=== PATIENT | male | born 1975 | race Caucasian/White ===

== ENCOUNTER 2018-02-16 17:53 | Emergency (ER) | payer OTHER ==
[2018-02-16 18:07] VITALS: TEMP 98.2
[2018-02-16] MEDS ORDERED: Sodium Chloride 0.9% 1,000 ML IV ONE (18:57)
[2018-02-16 19:29] LABS: BASO # 0.1 K/uL (0.0-0.2); BASO % 0.7 % (0.0-2.0); EOS # 0.1 K/uL (0.0-0.7); EOS % 0.9 % (0.0-4.0); HEMOGLOBIN 15.5 g/dL (12.0-18.0); LYMPH # 2.9 K/uL (1.0-4.3); LYMPH % 26.7 % (20.0-40.0); MEAN CELL VOLUME 73.9 fL (80.0-94.0); MEAN CORPUSCULAR HEMOGLOBIN 23.9 pg (27.0-31.0); MEAN CORPUSCULAR HGB CONC 32.4 g/dL (33.0-37.0); MEAN PLATELET VOLUME 8.8 fL (7.2-11.7); MONO # 0.7 K/uL (0.0-0.8); MONO % 6.3 % (0.0-10.0); NEUT % 65.4 % (50.0-75.0); NRBC % 0.1 % (0.0-2.0); RBC 6.49 Mil/uL (4.40-5.90); RED CELL DISTRIBUTION WIDTH 14.7 % (11.5-14.5); WHITE BLOOD COUNT 10.7 K/uL (4.8-10.8)
[2018-02-16 19:37] LABS: URINE BILIRUBIN NEGATIVE (NEGATIVE); URINE BLOOD 2+ (NEGATIVE); URINE CLARITY Clear (Clear); URINE COLOR Straw (YELLOW); URINE GLUCOSE (UA) NORMAL (Normal); URINE LEUKOCYTE ESTERASE NEG Leu/uL (Negative); URINE PROTEIN NEGATIVE (NEGATIVE); URINE UROBILINOGEN NORMAL mg/dL (0.2-1.0)
[2018-02-16 19:40] LABS: ALB/GLOB RATIO 1.2 (1.0-2.1); ALBUMIN 4.4 g/dL (3.5-5.0); ALT/SGPT 37 U/L (21-72); AST/SGOT 21 U/L (17-59); BLOOD UREA NITROGEN 9 mg/dL (9-20); CALCIUM 9.6 mg/dl (8.6-10.4); GFR AFRICAN-AMERICAN > 60; GFR NON-AFRICAN AMERICAN > 60; LIPASE 344 U/L (23-300)
--- NOTE | 2018-02-16 19:58 | C.PDOC ---
Time Seen by Provider: 02/16/18 18:39 Chief Complaint (Nursing): Abdominal Pain History Per: Patient Onset/Duration Of Symptoms: Days (about 2 weeks), Waxing/Waning Current Symptoms Are (Timing): Still Present Severity: Moderate Location Of Pain/Discomfort: Diffuse Associated Symptoms: Constipation Alleviating Factors: None Additional History Per: Prior Records Past Medical History Reviewed: Historical Data, Nursing Documentation, Vital Signs Vital Signs: Last Vital Signs Temp 98.2 F 02/16/18 18:04 Pulse 109 H 02/16/18 18:04 Resp 19 02/16/18 18:04 BP 134/91 H 02/16/18 18:04 Pulse Ox 100 02/16/18 18:04 - Medical History PMH: HTN Surgical History: No Surg Hx Family History: States: Unknown Family Hx - Social History Hx Tobacco Use: No Hx Alcohol Use: No Hx Substance Use: No - Immunization History Hx Tetanus Toxoid Vaccination: No Hx Influenza Vaccination: Yes Hx Pneumococcal Vaccination: No Review Of Systems Except As Marked, All Systems Reviewed And Found Negative. Constitutional: Negative for: Weakness Cardiovascular: Negative for: Chest Pain Respiratory: Positive for: Cough. Negative for: Shortness of Breath, Hemoptysis Gastrointestinal: Positive for: Abdominal Pain, Constipation. Negative for: Vomiting, Diarrhea Genitourinary: Negative for: Hematuria, Scrotal Pain Musculoskeletal: Negative for: Neck Pain Skin: Negative for: Rash Neurological: Negative for: Weakness, Numbness Physical Exam - Physical Exam Appears: Non-toxic, No Acute Distress Skin: Normal Color, Warm, Dry, No Rash Head: Atraumatic, Normacephalic Eye(s): bilateral: Normal Inspection, PERRL, EOMI Neck: Normal ROM, Supple Cardiovascular: Rhythm Regular Respiratory: Normal Breath Sounds, No Accessory Muscle Use Gastrointestinal/Abdominal: Soft, Tenderness (mild nonspecific), No Distention, No Guarding, No Rebound Back: No CVA Tenderness Extremity: Normal ROM Neurological/Psych: Oriented x3, Normal Motor, Normal Sensation ED Course And Treatment - Laboratory Results Result Diagrams: 02/16/18 19:26 02/16/18 19:26 Lab Interpretation: No Acute Changes O2 Sat by Pulse Oximetry: 100 Pulse Ox Interpretation: Normal - Radiology CXR: Interpreted by Me, Viewed By Me CXR Interpretation: Yes: No Acute Disease - Other Rad Obsructive series X-Ray: Interpreted by Me, Viewed By Me Interpretation: Increased stool in colon. Reassessment Condition: Improved Disposition Counseled Patient/Family Regarding: Studies Performed, Diagnosis, Need For Followup, Rx Given - Disposition Referrals: Alexis Coronado MD [Medical Doctor] - Disposition: HOME/ ROUTINE Disposition Time: 19:58 Condition: STABLE Additional Instructions: Follow up with your doctor for further evaluation and treatment. Return to the ER if you develop vomiting, worsening of symptoms or if you have any other concerns. Prescriptions: Polyethylene Glycol 3350 [Miralax] 17 gm PO DAILY #7 packet Instructions: Constipation, Adult (DC) - Clinical Impression Clinical Impression: Abdominal pain, Constipation
[2018-02-16 20:11] VITALS: BP 130/79; PULSE 82; RESP 18; O2SAT 99
--- NOTE | 2018-02-17 09:43 | RAD ---
Date of service: 02/16/2018 PROCEDURE: Radiographs of the chest and abdomen (obstructive series) HISTORY: Abdominal pain, cough COMPARISON: No prior. TECHNIQUE: AP radiograph of the chest, with upright and supine radiographs of the abdomen. FINDINGS: CHEST: Lungs: Clear. Cardiovascular: Normal size heart. No pulmonary vascular congestion. Pleura: No pleural fluid. No pneumothorax. Other findings: None. ABDOMEN AND PELVIS: Bowel: Unremarkable bowel gas pattern. No evidence of mechanical obstruction. Free air: None. Bones: Unremarkable. Other findings: None. IMPRESSION: Unremarkable radiographs of chest and abdomen. No evidence of mechanical bowel obstruction.
== END 2018-02-16 20:11 | disposition home or self-care (01) ==
LOC: C.ER 17:53
DX: K59.00 Constipation, unspecified (principal); R10.9 Unspecified abdominal pain
CPT/HCPCS: 74022; 80053; 81001; 83690; 85025; 96360; 99285; J7030

== ENCOUNTER 2018-03-07 06:40 | Day surgery (SDC) | payer OTHER ==
[2018-03-06 11:58] VITALS: BMI 28.5
[2018-03-07] MEDS ORDERED: Propofol 10 mg/ml Inj (20 ML) ONE ×2 (08:35→08:56)
--- NOTE | 2018-03-07 08:35 | CP.SDSHP ---
Same Day Surgery H & P - History Proposed Procedure: colonoscopy Pre-Op Diagnosis: rectal bleeding. change in bowels - Previous Medical/Surgical History Cardiac: Hypertension - Allergies Allergies: Allergies No Known Allergies Allergy (Unverified 03/07/18 07:13) - Physical Exam Vital Signs: Vital Signs 03/07/18 03/07/18 07:05 07:25 Temperature 98.0 F Pulse Rate 80 80 Respiratory 20 Rate Blood Pressure 126/81 O2 Sat by Pulse 100 Oximetry Mental Status: Alert & Oriented x3 Neuro: WNL Heart: WNL Lungs: WNL GI: WNL - Impression Impression: rectal bleeding. change in bowels/constipation Pt. Evaluated Today:Candidate for Anesthesia & Procedure: Yes - Date & Time Date: 03/07/18 Time: 08:35 Short Stay Discharge - Short Stay Discharge Admitting Diagnosis/Reason for Visit: CONSTIPATION / RT LOWER QUADRANT PAIN Disposition: HOME/ ROUTINE
[2018-03-07 10:06] VITALS: TEMP 98
[2018-03-07 10:07] VITALS: O2SAT 100
[2018-03-07 10:09] VITALS: BP 106/68; PULSE 75; RESP 12
--- NOTE | 2018-03-09 21:34 | CARD ---
APPROVED REPORT Date of service: 03/07/2018 EKG Measurement Heart [id number] <Conclusion> Normal sinus rhythm Normal ECG
== END 2018-03-07 10:07 | disposition home or self-care (01) ==
LOC: C.ENDO 06:40
PROVIDERS: ATTEND Internal Medicine Gastroenterology
DX: D12.4 Benign neoplasm of descending colon (principal); K64.8 Other hemorrhoids; K59.00 Constipation, unspecified
CPT/HCPCS: 45380; 88305; 93005; J2001; J2704

== ENCOUNTER 2018-10-21 03:25 | Emergency (ER) | payer OTHER ==
[2018-10-21 03:25] VITALS: BMI 28.5
--- NOTE | 2018-10-21 03:54 | C.PDOC ---
History Of Present Illness 43 year old male presents to the ED c/o abdominal pain that started yesterday. Patient reports he has not taken any medications at home for his symptoms. Patient denies fever, chills, nausea, vomit, diarrhea, dysuria, back pain. Time Seen by Provider: 10/21/18 03:53 Chief Complaint (Nursing): Abdominal Pain History Per: Patient History/Exam Limitations: no limitations Onset/Duration Of Symptoms: Days (1) Current Symptoms Are (Timing): Still Present Pain Scale Rating Of: 4 Location Of Pain/Discomfort: Diffuse Quality Of Discomfort: "Pain" Associated Symptoms: denies: Nausea, Vomiting, Diarrhea, Urinary Symptoms Recent travel outside of the [place]: No Additional History Per: Patient Past Medical History Reviewed: Historical Data, Nursing Documentation, Vital Signs Vital Signs: Last Vital Signs Temp 98 F 10/21/18 03:31 Pulse 95 H 10/21/18 03:31 Resp 20 10/21/18 03:31 BP 146/93 H 10/21/18 03:31 Pulse Ox 97 10/21/18 03:31 - Medical History PMH: HTN Denies: Chronic Kidney Disease Surgical History: No Surg Hx Family History: States: Unknown Family Hx - Social History Hx Tobacco Use: No Hx Alcohol Use: No Hx Substance Use: No - Immunization History Hx Tetanus Toxoid Vaccination: No Hx Influenza Vaccination: Yes (2017) Hx Pneumococcal Vaccination: No Review Of Systems Constitutional: Negative for: Fever, Chills Cardiovascular: Negative for: Chest Pain Respiratory: Negative for: Shortness of Breath Gastrointestinal: Positive for: Abdominal Pain. Negative for: Nausea, Vomiting, Diarrhea, Constipation Skin: Negative for: Rash Neurological: Negative for: Weakness, Numbness Physical Exam - Physical Exam Appears: Non-toxic, No Acute Distress Skin: Warm, Dry Head: Normacephalic Eye(s): bilateral: Normal Inspection Oral Mucosa: Moist Neck: Supple Chest: Symmetrical Cardiovascular: Rhythm Regular Respiratory: No Rales, No Rhonchi, No Wheezing Gastrointestinal/Abdominal: Soft, No Tenderness, No Guarding, No Rebound Extremity: Bilateral: Atraumatic, Normal Color And Temperature, Normal ROM Neurological/Psych: Oriented x3, Normal Speech, Normal Cognition Gait: Steady ED Course And Treatment - Laboratory Results Result Diagrams: 10/21/18 04:23 10/21/18 04:23 O2 Sat by Pulse Oximetry: 97 (ON RA) Pulse Ox Interpretation: Normal Progress Note: Plan: - Labs. - protonix 40 mg iVP. - iv fluids. - toradol 30 mg IVP. - UA Reevaluation Time: 06:42 Reassessment Condition: Improved Medical Decision Making Medical Decision Making: Upon provider reevaluation patient is feeling better, is medically stable, and requires no further treatment in the ED at this time. Patient will be discharged home with Rx for protonix, naproxen . Counseling was provided and all questions were answered regarding diagnosis and need for follow up with dr coronado. There is agreement to discharge plan. Return if symptoms persist or worsen. Disposition Counseled Patient/Family Regarding: Studies Performed, Diagnosis, Need For Followup, Rx Given - Disposition Referrals: Alexis Coronado MD [Medical Doctor] - Disposition: HOME/ ROUTINE Disposition Time: 06:42 Condition: FAIR Additional Instructions: Please return if symptom recur Prescriptions: Naproxen [Naprosyn] 1 tab PO BID PRN #25 tab PRN Reason: Pain Pantoprazole Sodium [Protonix] 40 mg PO DAILY #14 ect Instructions: Pancreatitis (DC) Forms: [facility] ([place]ian) - Clinical Impression Clinical Impression: Abdominal pain, Pancreatitis - Scribe Statement The provider has reviewed the documentation as recorded by the Scribe Abelardo Sutton All medical record entries made by the Scribe were at my direction and personally dictated by me. I have reviewed the chart and agree that the record accurately reflects my personal performance of the history, physical exam, medical decision making, and the department course for this patient. I have also personally directed, reviewed, and agree with the discharge instructions and disposition.
[2018-10-21] MEDS ORDERED: Sodium Chloride 0.9% 1,000 ML IV ONE (04:10)
[2018-10-21 04:28] LABS: MEAN CORPUSCULAR HGB CONC 31.6 g/dL (33.0-37.0)
[2018-10-21 04:31] LABS: BASO # 0.1 K/uL (0.0-0.2); BASO % 1.1 % (0.0-2.0); EOS # 0.2 K/uL (0.0-0.7); EOS % 3.2 % (0.0-4.0); HEMOGLOBIN 15.2 g/dL (12.0-18.0); LYMPH # 2.4 K/uL (1.0-4.3); LYMPH % 31.4 % (20.0-40.0); MEAN CELL VOLUME 75.9 fL (80.0-94.0); MEAN PLATELET VOLUME 9.3 fL (7.2-11.7); MONO # 0.7 K/uL (0.0-0.8); MONO % 8.5 % (0.0-10.0); NEUT # 4.3 K/uL (1.8-7.0); NEUT % 55.8 % (50.0-75.0); NRBC % 0.1 % (0.0-2.0); RBC 6.34 Mil/uL (4.40-5.90); RED CELL DISTRIBUTION WIDTH 14.6 % (11.5-14.5); WHITE BLOOD COUNT 7.7 K/uL (4.8-10.8)
[2018-10-21 04:38] LABS: ALB/GLOB RATIO 1.2 (1.0-2.1); ALBUMIN 4.1 g/dL (3.5-5.0); ALT/SGPT 29 U/L (21-72); AST/SGOT 27 U/L (17-59); BLOOD UREA NITROGEN 15 mg/dL (9-20); CALCIUM 9.6 mg/dl (8.6-10.4); GFR NON-AFRICAN AMERICAN > 60; LIPASE 533 U/L (23-300)
[2018-10-21 04:40] LABS: SQUAMOUS EPITHIAL < 1 /hpf (0-5); URINE BILIRUBIN NEGATIVE (NEGATIVE); URINE BLOOD 2+ (NEGATIVE); URINE CLARITY Clear (Clear); URINE COLOR Yellow (YELLOW); URINE GLUCOSE (UA) NORMAL (Normal); URINE LEUKOCYTE ESTERASE NEG Leu/uL (Negative); URINE PROTEIN NEGATIVE (NEGATIVE); URINE UROBILINOGEN NORMAL mg/dL (0.2-1.0)
[2018-10-21] MEDS ORDERED: Iodixanol 320 MG/ML 100 ML BOTTLE IV ONE (05:37)
[2018-10-21 06:03] VITALS: BP 151/78; PULSE 89; RESP 18; TEMP 98.2
[2018-10-21 06:45] VITALS: O2SAT 97
--- NOTE | 2018-10-21 09:27 | CT ---
CT abdomen and pelvis HISTORY: Abdominal pain. Elevated lipase. COMPARISON: None available. TECHNIQUE: Multiple contiguous axial images were performed through the abdomen and pelvis with the use of intravenous contrast. Subsequently, sagittal and coronal reformatted images were obtained. This CT exam was performed using one or more of the following dose reduction techniques: Automated exposure control, adjustment of the mA and/or kV according to patient size, and/or use of iterative reconstruction technique. FINDINGS: Scattered atelectasis at the lung bases. No pleural or pericardial effusion. Prominent liver with fatty infiltration. 1.9 centimeter low-attenuation lesion within the right hepatic lobe demonstrating a Hounsfield unit attenuation of 50, indeterminate. Further evaluation with contrast-enhanced multiphasic CT or MR is recommended if clinically indicated. Spleen is preserved. Adrenal glands are preserved. Minimal peripancreatic fat thickening and stranding which may represent a minimal acute pancreatitis. Clinical correlation. Large rounded encapsulated low-attenuation lesion seen at the junction of the body and tail of the pancreas measuring 4.1 x 3.9 centimeters demonstrating a Hounsfield unit attenuation of 1. This is of uncertain clinical etiology and further evaluation with contrast-enhanced pancreatic protocol CT or MR is recommended if clinically indicated. Small hiatal hernia. Few mildly thickened loops of small bowel in the upper mid abdomen. Right kidney 6 millimeter hypodensity in the upper pole of the right kidney, too small to adequately characterize. Left Kidney: No calculi or hydronephrosis. Mildly thick-walled urinary bladder. Fecal retention in the colon. Underdistention of the distal descending colon. Appendix is within normal limits. Few shotty para-aortic and inguinal lymph nodes. Mild atherosclerotic calcification and plaque in the aorta. Degenerative changes in the spine. Impression: 1. Minimal peripancreatic fat thickening and stranding which may represent a minimal acute pancreatitis. Clinical correlation. 2. Large rounded encapsulated low-attenuation lesion seen at the junction of the body and tail of the pancreas measuring 4.1 x 3.9 centimeters demonstrating a Hounsfield unit attenuation of 1. This cystic lesion of the pancreas is of uncertain clinical etiology and further evaluation with contrast-enhanced pancreatic protocol CT or MR is recommended for further evaluation if clinically indicated. 3. Small hiatal hernia. 4. Few mildly thickened loops of small bowel in the upper mid abdomen. 5. Mildly thick-walled urinary bladder. 6. Prominent liver with fatty infiltration. 1.9 centimeter low-attenuation lesion within the right hepatic lobe demonstrating a Hounsfield unit attenuation of 50, indeterminate. Further evaluation with contrast-enhanced multiphasic CT or MR is recommended if clinically indicated. Additional findings as above. A preliminary report was generated at 6:35 a.m. on 10/21/[address] Zeynep Harper from [facility]. This case was placed in the PA review folder.
== END 2018-10-21 06:54 | disposition home or self-care (01) ==
LOC: C.ER 03:25
DX: K85.90 Acute pancreatitis without necrosis or infection, unspecified (principal); R10.9 Unspecified abdominal pain; I10 Essential (primary) hypertension
CPT/HCPCS: 74177; 80053; 81001; 83690; 85025; 96361; 96374; 96375; 99284; C9113; J1885; J7030; Q9967

== ENCOUNTER 2018-10-21 15:34 | Observation (INO) | payer OTHER ==
[2018-10-21 15:34] VITALS: BMI 28.5
--- NOTE | 2018-10-21 15:59 | C.PDOC ---
History Of Present Illness 43 y/o male pt presents to the ER with family c/o abdominal pain. Pt was here overnight, received CT scan and lab; diagnosed with pancreatitis but was discharged home. As per family, pt was not feeling well and his back pain and vomiting came back which prompted them to bring him to the ER again. Pt has no other complaints or associated sx at this time. Time Seen by Provider: 10/21/18 15:35 Chief Complaint (Nursing): Abdominal Pain History Per: Patient History/Exam Limitations: no limitations Onset/Duration Of Symptoms: Days (x1) Current Symptoms Are (Timing): Still Present Past Medical History Reviewed: Historical Data, Nursing Documentation, Vital Signs Vital Signs: Last Vital Signs Temp 98.2 F 10/21/18 15:41 Pulse 114 H 10/21/18 15:41 Resp 20 10/21/18 15:41 BP 187/110 H 10/21/18 15:41 Pulse Ox 100 10/21/18 15:41 - Medical History PMH: HTN Surgical History: No Surg Hx Family History: States: Unknown Family Hx - Social History Hx Tobacco Use: No Hx Alcohol Use: No Hx Substance Use: No - Immunization History Hx Tetanus Toxoid Vaccination: No Hx Influenza Vaccination: Yes (2017) Hx Pneumococcal Vaccination: No Review Of Systems Except As Marked, All Systems Reviewed And Found Negative. Constitutional: Positive for: Other (dx with pancreatitis ) Gastrointestinal: Positive for: Vomiting Musculoskeletal: Positive for: Back Pain Physical Exam - Physical Exam Appears: Non-toxic, In Acute Distress, Other (in pain ) Skin: Warm, Dry Head: Normacephalic Eye(s): bilateral: Normal Inspection Oral Mucosa: Moist Throat: Normal, No Erythema, No Exudate Neck: Normal ROM, Supple Chest: Symmetrical Cardiovascular: Other (tachycardiac) Respiratory: Normal Breath Sounds Gastrointestinal/Abdominal: Soft, Tenderness (upper abdomen; periumbilical area; consistent with pain ), Guarding, No Rebound Neurological/Psych: Oriented x3, Normal Speech, Normal Cognition ED Course And Treatment - Laboratory Results Result Diagrams: 10/21/18 16:12 10/21/18 16:12 O2 Sat by Pulse Oximetry: 100 (RA) Pulse Ox Interpretation: Normal Progress Note: Case was d/w who accepted patient to his service for further evaluation and treatment. Medical Decision Making Medical Decision Making: impression: pancreatitis plans: -- chem labs -- blood work -- IV fluids -- morphine Disposition - Disposition Disposition: HOSPITALIZED Disposition Time: 17:21 Condition: FAIR - Clinical Impression Clinical Impression: Abdominal pain, Pancreatitis, Pancreatic lesion - PA / [employer]REIGHT LOADER / Resident Statement MD/DO has reviewed & agrees with the documentation as recorded. - Scribe Statement The provider has reviewed the documentation as recorded by the Scribe Nette Villalta All medical record entries made by the Scribe were at my direction and personally dictated by me. I have reviewed the chart and agree that the record accurately reflects my personal performance of the history, physical exam, medical decision making, and the department course for this patient. I have also personally directed, reviewed, and agree with the discharge instructions and disposition. Decision To Admit - Pt Status Changed To: Hospital Disposition Of: Observation - . Bed Request Type: Regular Admitting Physician: Jess Allen Patient Diagnosis: Abdominal pain, Pancreatitis, Pancreatic lesion
[2018-10-21] MEDS ORDERED: Sodium Chloride 0.9% 1,000 ML IV STA (16:01)
[2018-10-21] MEDS ORDERED: Morphine 4 MG/ML VIAL ONE (16:11)
[2018-10-21] MEDS ORDERED: Sodium Chloride 0.9% 1,000 ML ONE (16:12)
[2018-10-21 16:20] LABS: BASO # 0.1 K/uL (0.0-0.2); BASO % 0.6 % (0.0-2.0); EOS % 0.1 % (0.0-4.0); LYMPH # 1.4 K/uL (1.0-4.3); LYMPH % 12.6 % (20.0-40.0); MEAN CORPUSCULAR HEMOGLOBIN 23.8 pg (27.0-31.0); MEAN CORPUSCULAR HGB CONC 31.3 g/dL (33.0-37.0); MEAN PLATELET VOLUME 9.7 fL (7.2-11.7); MONO # 0.6 K/uL (0.0-0.8); NEUT # 9.4 K/uL (1.8-7.0); NEUT % 81.7 % (50.0-75.0); RBC 6.31 Mil/uL (4.40-5.90); RED CELL DISTRIBUTION WIDTH 14.9 % (11.5-14.5); WHITE BLOOD COUNT 11.5 K/uL (4.8-10.8)
[2018-10-21 16:31] LABS: ALB/GLOB RATIO 1.3 (1.0-2.1); ALBUMIN 4.4 g/dL (3.5-5.0); ALT/SGPT 30 U/L (21-72); AST/SGOT 25 U/L (17-59); BLOOD UREA NITROGEN 14 mg/dL (9-20); CALCIUM 9.8 mg/dl (8.6-10.4); GFR NON-AFRICAN AMERICAN > 60; LIPASE 343 U/L (23-300)
[2018-10-21 17:43] LABS: URINE BILIRUBIN NEGATIVE (NEGATIVE); URINE BLOOD 1+ (NEGATIVE); URINE CLARITY Clear (Clear); URINE COLOR Yellow (YELLOW); URINE GLUCOSE (UA) NORMAL (Normal); URINE LEUKOCYTE ESTERASE NEG Leu/uL (Negative); URINE PROTEIN NEGATIVE (NEGATIVE); URINE UROBILINOGEN NORMAL mg/dL (0.2-1.0)
--- NOTE | 2018-10-21 18:41 | CP.PCM.HP ---
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 - RENAL Hx Chronic Kidney Disease: No - ENDOCRINE/METABOLIC Hx Endocrine Disorders: No - HEMATOLOGICAL/ONCOLOGICAL Hx Blood Disorders: No Hx Blood Transfusions: No - INTEGUMENTARY Hx Dermatological Problems: No - MUSCULOSKELETAL/RHEUMATOLOGICAL Hx Musculoskeletal Disorders: No - GASTROINTESTINAL Hx Gastrointestinal Disorders: Yes (ABDOMINAL PAIN) - GENITOURINARY/GYNECOLOGICAL Hx Genitourinary Disorders: No - PSYCHIATRIC Hx Substance Use: No - SURGICAL HISTORY Hx Surgeries: No - ANESTHESIA Hx Anesthesia: No Hx Anesthesia Reactions: No Hx Malignant Hyperthermia: No Meds Allergies/Adverse Reactions: Allergies Allergy/AdvReac Type Severity Reaction Status Date / Time No Known Allergies Allergy Verified 10/21/18 03:40 Physical Exam - Constitutional Appears: Well - Head Exam Head Exam: ATRAUMATIC, NORMAL INSPECTION, NORMOCEPHALIC - Eye Exam Eye Exam: EOMI, Normal appearance, PERRL Pupil Exam: NORMAL ACCOMODATION, PERRL - ENT Exam ENT Exam: Mucous Membranes Moist, Normal Exam - Neck Exam Neck exam: Positive for: Normal Inspection - Respiratory Exam Respiratory Exam: Decreased Breath Sounds - Cardiovascular Exam Cardiovascular Exam: REGULAR RHYTHM, +S1, +S2 - GI/Abdominal Exam GI & Abdominal Exam: Diminished Bowel Sounds, Soft - Rectal Exam Rectal Exam: Deferred Results - Vital Signs Recent Vital Signs: Last Vital Signs Temp 98.2 F 10/21/18 15:41 Pulse 114 H 10/21/18 15:41 Resp 20 10/21/18 15:41 BP 187/110 H 10/21/18 15:41 Pulse Ox 100 10/21/18 17:51 - Labs Result Diagrams: 10/21/18 16:12 10/21/18 16:12 Labs: Laboratory Results - last 24 hr 10/21/18 10/21/18 10/21/18 16:12 16:12 17:29 WBC 11.5 H RBC 6.31 H Hgb 15.0 Hct 47.9 MCV 76.0 L MCH 23.8 L MCHC 31.3 L RDW 14.9 H Plt Count 259 MPV 9.7 Neut % (Auto) 81.7 H Lymph % (Auto) 12.6 L Lander % (Auto) 5.0 Eos % (Auto) 0.1 Baso % (Auto) 0.6 Neut # (Auto) 9.4 H Lymph # (Auto) 1.4 Lander # (Auto) 0.6 Eos # (Auto) 0.0 Baso # (Auto) 0.1 Sodium 136 Potassium 3.6 Chloride 102 Carbon Dioxide 25 Anion Gap 13 BUN 14 Creatinine 1.1 Est GFR ( Amer) > 60 Est GFR (Non-Af Amer) > 60 Random Glucose 110 Calcium 9.8 Total Bilirubin 1.1 AST 25 ALT 30 Alkaline Phosphatase 86 Total Protein 7.9 Albumin 4.4 Globulin 3.5 Albumin/Globulin Ratio 1.3 Lipase 343 H Urine Color Yellow Urine Clarity Clear Urine pH 6.0 Ur Specific [place] 1.038 H Urine Protein Negative Urine Glucose (UA) Normal Urine Ketones Negative Urine Blood 1+ H Urine Nitrate Negative Urine Bilirubin Negative Urine Urobilinogen Normal Ur Leukocyte Esterase Neg Urine WBC (Auto) 1 Urine RBC (Auto) 32 H
[2018-10-21] MEDS ORDERED: Nitroglycerin 2% Ointment Foilpak UD TOP PRN (21:00)
[2018-10-21] MEDS: Sodium Chloride 0.9% 1,000 ML IV SCH (21:02)
[2018-10-22] MEDS: Sodium Chloride 0.9% 1,000 ML IV SCH ×3 (04:40→20:30)
[2018-10-22 08:12] LABS: BASO % 0.5 % (0.0-2.0); EOS # 0.1 K/uL (0.0-0.7); LYMPH # 2.7 K/uL (1.0-4.3); LYMPH % 31.5 % (20.0-40.0); MEAN CELL VOLUME 75.6 fL (80.0-94.0); MEAN CORPUSCULAR HEMOGLOBIN 24.5 pg (27.0-31.0); MEAN CORPUSCULAR HGB CONC 32.3 g/dL (33.0-37.0); MEAN PLATELET VOLUME 9.7 fL (7.2-11.7); MONO # 0.8 K/uL (0.0-0.8); MONO % 9.8 % (0.0-10.0); NEUT % 57.2 % (50.0-75.0); RBC 5.73 Mil/uL (4.40-5.90); RED CELL DISTRIBUTION WIDTH 14.6 % (11.5-14.5); WHITE BLOOD COUNT 8.6 K/uL (4.8-10.8)
[2018-10-22 08:24] LABS: ALB/GLOB RATIO 1.1 (1.0-2.1); ALBUMIN 3.6 g/dL (3.5-5.0); ALT/SGPT 30 U/L (21-72); AST/SGOT 25 U/L (17-59); BLOOD UREA NITROGEN 11 mg/dL (9-20); CALCIUM 8.8 mg/dl (8.6-10.4); GFR NON-AFRICAN AMERICAN > 60
[2018-10-22] MEDS: Enoxaparin 40 mg Syringe SC SCH (10:18)
--- NOTE | 2018-10-22 12:44 | CP.PCM.CON ---
<Sukumar Brown - Last Filed: 10/22/18 12:46> History of Present Illness - History of Present Illness History of Present Illness: GI fellow PGY 4, consult note Gerard Allen is a very pleasant 43-year-old male with history of hypertension but otherwise healthy presenting with acute abdominal pain. Patient was evaluated yesterday and found to have acute pancreatitis but had very mild symptoms. He was discharged, but unfortunately symptoms returned and was ultimately admitted to the hospital. Today, patient has minimal abdominal pain, denies nausea or vomiting, urine is clear and labs are unremarkable. Patient does admit recent weight loss over the last month but has changed his diet. He denies diabetes. Workup in emergency department revealed very minimal lipase elevation. CT scan was significant for signs of mild pancreatitis however there was an abnormality, pancreatic lesion approximately 4 cm in the body/tail. It is presumed a cyst. Patient denied any history of previous knowledge or previous pancreatitis episodes. He denies alcohol or smoking. Past medical historyas above Surgical historycolonoscopy in 02/[address] Lai, [facility] Family historydenies family history of GI-related cancers Social historyas above 12 point review of systems negative except for above. 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 - RENAL Hx Chronic Kidney Disease: No - ENDOCRINE/METABOLIC Hx Endocrine Disorders: No - HEMATOLOGICAL/ONCOLOGICAL Hx Blood Disorders: No Hx Blood Transfusions: No - INTEGUMENTARY Hx Dermatological Problems: No - MUSCULOSKELETAL/RHEUMATOLOGICAL Hx Musculoskeletal Disorders: No - GASTROINTESTINAL Hx Gastrointestinal Disorders: Yes (ABDOMINAL PAIN) - GENITOURINARY/GYNECOLOGICAL Hx Genitourinary Disorders: No - PSYCHIATRIC Hx Substance Use: No - SURGICAL HISTORY Hx Surgeries: No - ANESTHESIA Hx Anesthesia: No Hx Anesthesia Reactions: No Hx Malignant Hyperthermia: No Meds Allergies/Adverse Reactions: Allergies Allergy/AdvReac Type Severity Reaction Status Date / Time No Known Allergies Allergy Verified 10/21/18 03:40 - Medications Medications: Current Medications Enoxaparin Sodium (Lovenox) 40 mg SC DAILY [facility] Last Admin: 10/22/18 10:18 Dose: 40 mg Sodium Chloride (Sodium Chloride 0.9%) 1,000 mls @ 125 mls/hr IV .Q8H [facility] Last Admin: 10/22/18 04:40 Dose: 125 mls/hr Morphine Sulfate (Morphine) 4 mg IVP Q6 PRN PRN Reason: Pain, severe (8-10) Last Admin: 10/21/18 21:02 Dose: 4 mg Nitroglycerin (Nitro-Bid 2% Oint) 1 ea TOP Q6H PRN PRN Reason: Pain, Mild (1-3) Pantoprazole Sodium (Protonix Inj) 40 mg IVP DAILY [facility] Last Admin: 10/22/18 10:18 Dose: 40 mg Pneumococcal Polyvalent Vaccine (Pneumovax 23 Vaccine) 0.5 ml IM .ONCE ONE Stop: 10/23/18 12:01 Physical Exam - Constitutional Appears: Non-toxic, No Acute Distress - Head Exam Head Exam: ATRAUMATIC, NORMAL INSPECTION - Eye Exam Eye Exam: EOMI, Normal appearance - ENT Exam ENT Exam: Mucous Membranes Moist, Normal Exam - Respiratory Exam Respiratory Exam: Clear to Auscultation Bilateral, NORMAL BREATHING PATTERN - Cardiovascular Exam Cardiovascular Exam: REGULAR RHYTHM, +S1, +S2 - GI/Abdominal Exam GI & Abdominal Exam: Normal Bowel Sounds, Soft. absent: Organomegaly, Ten derness - Extremities Exam Extremities exam: Positive for: normal inspection. Negative for: pedal edema - Neurological Exam Neurological exam: Alert, CN II-XII Intact, Oriented x3 - Psychiatric Exam Psychiatric exam: Normal Affect, Normal Mood - Skin Skin Exam: Normal Color, Warm Results - Vital Signs Recent Vital Signs: Last Vital Signs Temp 98.2 F 10/22/18 08:00 Pulse 98 H 10/22/18 08:00 Resp 20 10/22/18 08:00 BP 142/84 10/22/18 08:00 Pulse Ox 96 10/22/18 08:00 - Labs Result Diagrams: 10/22/18 07:59 10/22/18 07:59 Labs: Laboratory Results - last 24 hr 10/21/18 10/21/18 10/21/18 16:12 16:12 17:29 WBC 11.5 H RBC 6.31 H Hgb 15.0 Hct 47.9 MCV 76.0 L MCH 23.8 L MCHC 31.3 L RDW 14.9 H Plt Count 259 MPV 9.7 Neut % (Auto) 81.7 H Lymph % (Auto) 12.6 L [place] % (Auto) 5.0 Eos % (Auto) 0.1 Baso % (Auto) 0.6 Neut # (Auto) 9.4 H Lymph # (Auto) 1.4 [place] # (Auto) 0.6 Eos # (Auto) 0.0 Baso # (Auto) 0.1 Sodium 136 Potassium 3.6 Chloride 102 Carbon Dioxide 25 Anion Gap 13 BUN 14 Creatinine 1.1 Est GFR ( Amer) > 60 Est GFR (Non-Af Amer) > 60 Random Glucose 110 Calcium 9.8 Total Bilirubin 1.1 AST 25 ALT 30 Alkaline Phosphatase 86 Total Protein 7.9 Albumin 4.4 Globulin 3.5 Albumin/Globulin Ratio 1.3 Lipase 343 H Urine Color Yellow Urine Clarity Clear Urine pH 6.0 Ur Specific [place] 1.038 H Urine Protein Negative Urine Glucose (UA) Normal Urine Ketones Negative Urine Blood 1+ H Urine Nitrate Negative Urine Bilirubin Negative Urine Urobilinogen Normal Ur Leukocyte Esterase Neg Urine WBC (Auto) 1 Urine RBC (Auto) 32 H 10/22/18 10/22/18 07:59 07:59 WBC 8.6 RBC 5.73 Hgb 14.0 Hct 43.3 MCV 75.6 L MCH 24.5 L MCHC 32.3 L RDW 14.6 H Plt Count 228 MPV 9.7 Neut % (Auto) 57.2 Lymph % (Auto) 31.5 [place] % (Auto) 9.8 Eos % (Auto) 1.0 Baso % (Auto) 0.5 Neut # (Auto) 5.0 Lymph # (Auto) 2.7 [place] # (Auto) 0.8 Eos # (Auto) 0.1 Baso # (Auto) 0.0 Sodium 137 Potassium 3.5 L Chloride 105 Carbon Dioxide 25 Anion Gap 11 BUN 11 Creatinine 0.9 Est GFR ( Amer) > 60 Est GFR (Non-Af Amer) > 60 Random Glucose 101 Calcium 8.8 Total Bilirubin 1.0 AST 25 ALT 30 Alkaline Phosphatase 75 Total Protein 6.8 Albumin 3.6 Globulin 3.2 Albumin/Globulin Ratio 1.1 Lipase Urine Color Urine Clarity Urine pH Ur Specific [place] Urine Protein Urine Glucose (UA) Urine Ketones Urine Blood Urine Nitrate Urine Bilirubin Urine Urobilinogen Ur Leukocyte Esterase Urine WBC (Auto) Urine RBC (Auto) Assessment & Plan - Assessment and Plan (Free Text) Assessment: #acute pancreatitis #Pancreatic lesion, 4 cm #tubular adenoma, subcentimeter 2018 #internal hemorrhoids #Hypertension plan: Previous endoscopic reports reviewed CT abdomen and pelvis reviewed - 4 cm pancreatic lesion in tail/body This is likely a cyst, however recommend MRI/MRCP to better evaluate the lesion. Recommend ultrasound to evaluate for stones, CBD He will benefit from EUS evaluation as the lesion is greater than 3 cm. We will discuss further after MRI/MRCP results. Case discussed with Dr. Cooper, see attestation - Date & Time Date: 10/22/18 Time: 12:45 <Nick Cooper - Last Filed: 10/23/18 19:16> Meds - Medications Medications: Current Medications Enoxaparin Sodium (Lovenox) 40 mg SC DAILY [facility] Last Admin: 10/23/18 09:57 Dose: Not Given Sodium Chloride (Sodium Chloride 0.9%) 1,000 mls @ 75 mls/hr IV .[id number] [facility] Last Admin: 10/23/18 08:35 Dose: Not Given Morphine Sulfate (Morphine) 4 mg IVP Q6 PRN PRN Reason: Pain, severe (8-10) Last Admin: 10/21/18 21:02 Dose: 4 mg Nitroglycerin (Nitro-Bid 2% Oint) 1 ea TOP Q6H PRN PRN Reason: Pain, Mild (1-3) Pantoprazole Sodium (Protonix Inj) 40 mg IVP DAILY [facility] Last Admin: 10/23/18 09:57 Dose: Not Given Results - Vital Signs Recent Vital Signs: Last Vital Signs Temp 98.3 F 10/23/18 16:00 Pulse 85 10/23/18 16:00 Resp 20 10/23/18 16:00 BP 129/78 10/23/18 16:00 Pulse Ox 98 10/23/18 16:00 - Labs Result Diagrams: 10/22/18 07:59 10/23/18 12:55 Labs: Laboratory Results - last 24 hr 10/23/18 10/23/18 10/23/18 11:16 11:36 11:36 PT INR Sodium Potassium Chloride Carbon Dioxide Anion Gap BUN Creatinine Est GFR ( Amer) Est GFR (Non-Af Amer) POC Glucose (mg/dL) 93 Random Glucose Calcium Iron 49 TIBC 419 % Saturation 12 L Ferritin 50.6 Total Bilirubin AST ALT Alkaline Phosphatase Total Protein Albumin Globulin Albumin/Globulin Ratio Triglycerides 114 Cholesterol 186 LDL Cholesterol Direct 129 HDL Cholesterol 45 Alpha Fetoprotein 3.4 CA 19-9 Antigen < 1.4 Hepatitis A IgM Ab Hep Bs Antigen Hep B Core IgM Ab Hepatitis C Antibody 10/23/18 10/23/18 10/23/18 11:36 11:36 12:55 PT 12.3 H INR 1.1 Sodium 137 Potassium 3.6 Chloride 103 Carbon Dioxide 26 Anion Gap 12 BUN 10 Creatinine 1.0 Est GFR ( Amer) > 60 Est GFR (Non-Af Amer) > 60 POC Glucose (mg/dL) Random Glucose 87 Calcium 9.6 Iron TIBC % Saturation Ferritin Total Bilirubin 0.9 AST 23 ALT 20 L D Alkaline Phosphatase 80 Total Protein 7.4 Albumin 4.1 Globulin 3.3 Albumin/Globulin Ratio 1.2 Triglycerides Cholesterol LDL Cholesterol Direct HDL Cholesterol Alpha Fetoprotein CA 19-9 Antigen Hepatitis A IgM Ab Negative Hep Bs Antigen Negative Hep B Core IgM Ab Negative Hepatitis C Antibody Negative Attending/Attestation - Attestation I have personally seen and examined this patient.: Yes I have fully participated in the care of the patient.: Yes I have reviewed all pertinent clinical information: Yes Notes (Text): 10/23/18 19:16 Late entry The pt was seen and examined on Tuesday. Chart was reviewed. Findings assessment and recommendations were discussed with Dr. Brown and documented above.
[2018-10-22] MEDS ORDERED: Potassium Chloride 10 mEq ER Tab PO SCH (13:00)
[2018-10-22] MEDS ORDERED: Potassium Chloride 10 mEq ER Tab PO ONE ×2 (14:05→14:30)
--- NOTE | 2018-10-22 14:12 | US ---
Date of service: 10/22/2018 HISTORY: pancreatitis COMPARISON: October 21, 2018. CT abdomen and pelvis. TECHNIQUE: Sonographic evaluation of the abdomen. FINDINGS: LIVER: Measures 15.1 cm. Hepatopedal blood flow. Fatty infiltration manifest ultrasonographically as increased echogenicity of the liver parenchyma. No mass. No intrahepatic bile duct dilatation.Incidental finding(s): 2 areas of focal fatty sparing right hepatic lobe GALLBLADDER: Solitary gallbladder polyp 3 x 5 mm. Otherwise unremarkable. COMMON BILE DUCT: Measures 3.6 mm. No stones. No dilatation. PANCREAS: Redemonstration of cyst in the pancreas measures 3.6 x 4.4 cm. This is identified distally either emanating from the pancreatic body or tail. RIGHT KIDNEY: Measures cm. Normal echogenicity. No calculus, mass, or hydronephrosis. LEFT KIDNEY: Measures cm. Normal echogenicity. No calculus, mass, or hydronephrosis. SPLEEN: Normal in size and contour. No mass. AORTA: No aneurysmal dilatation. IVC: Unremarkable. OTHER FINDINGS: None. IMPRESSION: No visible common bile duct calculi. Common and intrahepatic biliary radicles are of normal caliber. Redemonstration of pancreatic cyst also identified on recent CT scan of the abdomen and pelvis performed October 21, 2018.
--- NOTE | 2018-10-22 15:52 | CP.PCM.PN ---
Subjective - Date & Time of Evaluation Date of Evaluation: 10/22/18 Time of Evaluation: 09:00 - Subjective Subjective: clinically same Objective - Vital Signs/Intake and Output Vital Signs (last 24 hours): Temp Pulse Resp BP Pulse Ox 98.2 F 98 H 20 142/84 96 10/22/18 08:00 10/22/18 08:00 10/22/18 08:00 10/22/18 08:00 10/22/18 08:00 Intake and Output: 10/22/18 10/22/18 06:59 18:59 Intake Total 1250 1480 Balance 1250 1480 - Medications Medications: Current Medications Enoxaparin Sodium (Lovenox) 40 mg SC DAILY [facility] Last Admin: 10/22/18 10:18 Dose: 40 mg Sodium Chloride (Sodium Chloride 0.9%) 1,000 mls @ 125 mls/hr IV .Q8H [facility] Last Admin: 10/22/18 15:02 Dose: 125 mls/hr Morphine Sulfate (Morphine) 4 mg IVP Q6 PRN PRN Reason: Pain, severe (8-10) Last Admin: 10/21/18 21:02 Dose: 4 mg Nitroglycerin (Nitro-Bid 2% Oint) 1 ea TOP Q6H PRN PRN Reason: Pain, Mild (1-3) Pantoprazole Sodium (Protonix Inj) 40 mg IVP DAILY [facility] Last Admin: 10/22/18 10:18 Dose: 40 mg Pneumococcal Polyvalent Vaccine (Pneumovax 23 Vaccine) 0.5 ml IM .ONCE ONE Stop: 10/23/18 12:01 - Labs Labs: 10/22/18 07:59 10/22/18 07:59 - Constitutional Appears: Well - Head Exam Head Exam: ATRAUMATIC, NORMAL INSPECTION, NORMOCEPHALIC - Eye Exam Eye Exam: EOMI, Normal appearance, PERRL Pupil Exam: NORMAL ACCOMODATION, PERRL - ENT Exam ENT Exam: Mucous Membranes Moist, Normal Exam - Neck Exam Neck Exam: Full ROM, Normal Inspection. absent: Lymphadenopathy - Respiratory Exam Respiratory Exam: Decreased Breath Sounds - Cardiovascular Exam Cardiovascular Exam: REGULAR RHYTHM, +S1, +S2 - GI/Abdominal Exam GI & Abdominal Exam: Soft, Diminished Bowel Sounds - Rectal Exam Rectal Exam: Deferred
[2018-10-23 08:13] VITALS: RESP 20
[2018-10-23] MEDS: Sodium Chloride 0.9% 1,000 ML IV SCH (08:35)
[2018-10-23] MEDS: Enoxaparin 40 mg Syringe SC SCH (09:57)
[2018-10-23] MEDS ORDERED: Gadodiamide 287 mg/ml 20 ml IV ONE (10:04)
--- NOTE | 2018-10-23 10:52 | CP.PCM.PN ---
<Saskia Mckeon - Last Filed: 10/23/18 10:53> Subjective - Date & Time of Evaluation Date of Evaluation: 10/23/18 Time of Evaluation: 10:53 - Subjective Subjective: Gastroenterology Fellow/PGY6 Progress Note Patient notes improving left upper abdomen pain, pain scale 4/10 from 10/10. Tolerating clear liquid diet. Denies alcohol intake and only new use of vitamin D supplement for the last two weeks. Denies similar symptoms or treatment for pancreatitis in the past. A 12-point review of systems negative except for as above. Objective - Vital Signs/Intake and Output Vital Signs (last 24 hours): Temp Pulse Resp BP Pulse Ox 98.1 F 98 H 20 145/87 97 10/23/18 07:12 10/23/18 07:12 10/23/18 07:12 10/23/18 07:12 10/23/18 07:12 Intake and Output: 10/23/18 10/23/18 06:59 18:59 Intake Total 1500 Balance 1500 - Medications Medications: Current Medications Enoxaparin Sodium (Lovenox) 40 mg SC DAILY [facility] Last Admin: 10/23/18 09:57 Dose: Not Given Sodium Chloride (Sodium Chloride 0.9%) 1,000 mls @ 75 mls/hr IV .[id number] [facility] Last Admin: 10/23/18 08:35 Dose: Not Given Morphine Sulfate (Morphine) 4 mg IVP Q6 PRN PRN Reason: Pain, severe (8-10) Last Admin: 10/21/18 21:02 Dose: 4 mg Nitroglycerin (Nitro-Bid 2% Oint) 1 ea TOP Q6H PRN PRN Reason: Pain, Mild (1-3) Pantoprazole Sodium (Protonix Inj) 40 mg IVP DAILY [facility] Last Admin: 10/23/18 09:57 Dose: Not Given Pneumococcal Polyvalent Vaccine (Pneumovax 23 Vaccine) 0.5 ml IM .ONCE ONE Stop: 10/23/18 12:01 - Labs Labs: 10/22/18 07:59 10/22/18 07:59 - Constitutional Appears: Non-toxic, No Acute Distress - Head Exam Head Exam: ATRAUMATIC, NORMOCEPHALIC - Eye Exam Eye Exam: EOMI, PERRL. absent: Scleral icterus Pupil Exam: PERRL. absent: Miosis, Mydriatic - ENT Exam ENT Exam: Mucous Membranes Moist, Normal Oropharynx - Neck Exam Neck Exam: Full ROM, Normal Inspection - Respiratory Exam Respiratory Exam: Clear to Ausculation Bilateral. absent: Rales, Rhonchi, Wheezes - Cardiovascular Exam Cardiovascular Exam: RRR, +S1, +S2. absent: Gallop, Rubs - GI/Abdominal Exam GI & Abdominal Exam: Soft, Tenderness, Normal Bowel Sounds. absent: Distended, Firm, Guarding, Rigid, Organomegaly, Rebound Additional comments: mild LUQ tenderness to palpation - Extremities Exam Extremities Exam: Normal Inspection. absent: Pedal Edema - Neurological Exam Neurological Exam: Alert - Psychiatric Exam Psychiatric exam: Normal Affect, Normal Mood - Skin Skin Exam: Dry, Intact, Normal Color, Warm Assessment and Plan - Assessment and Plan (Free Text) Assessment: 43 year old male with PMH of Hypertension on Losartan/HCTZ presenting with abdominal pain. Active treatment of acute mild pancreatitis confirmed on initial ER visit. Patient was discharged and admitted within 24 hours due to worsened abdominal pain. No prior EGD. Prior colonoscopy 02/2018 for change in bowel habits and rectal bleeding showed a 4mm flat tubular adenoma, Grade II internal hemorrhoids, and excellent bowel prep with recommended surveillance in 5-10 years. Plan: -CT A/P IV contrast reviewed -mild bella-pancreatic fluid/stranding- continue IVFs, liquid diet, morphine PRN -denies alcohol abuse, denies prior similar symptoms -abdominal ultrasound reviewed- no gallstones or biliary dilatation, gallbladder 3x5mm polyp -right hepatic lobe 1.[address] not visualized on Ultrasound -ordered lipid panel, IgG4 -pancreatic body/tail 4.1x3.9cm lesion -ordered AFP, CA 19-9, Hepatitis panel, ASMA, AMA, PAMELA, IgG/A/M, LKM, Fe, TIBC, ferritin -normal LFTs and platelet count, ordered INR, no signs of portal hypertension -follow up results of MRCP and MRI abdomen w/ and w/o contrast for further characterization of pancreatic/hepatic lesions and evaluation of biliary tree -will follow clinical course and make further recommendations based on workup and results <Christiano Wallace - Last Filed: 10/23/18 13:26> Objective - Vital Signs/Intake and Output Vital Signs (last 24 hours): Temp Pulse Resp BP Pulse Ox 98.1 F 98 H 20 145/87 97 10/23/18 07:12 10/23/18 07:12 10/23/18 07:12 10/23/18 07:12 10/23/18 07:12 Intake and Output: 10/23/18 10/23/18 06:59 18:59 Intake Total 1500 Balance 1500 - Medications Medications: Current Medications Enoxaparin Sodium (Lovenox) 40 mg SC DAILY [facility] Last Admin: 10/23/18 09:57 Dose: Not Given Sodium Chloride (Sodium Chloride 0.9%) 1,000 mls @ 75 mls/hr IV .[id number] [facility] Last Admin: 10/23/18 08:35 Dose: Not Given Morphine Sulfate (Morphine) 4 mg IVP Q6 PRN PRN Reason: Pain, severe (8-10) Last Admin: 10/21/18 21:02 Dose: 4 mg Nitroglycerin (Nitro-Bid 2% Oint) 1 ea TOP Q6H PRN PRN Reason: Pain, Mild (1-3) Pantoprazole Sodium (Protonix Inj) 40 mg IVP DAILY [facility] Last Admin: 10/23/18 09:57 Dose: Not Given - Labs Labs: 10/22/18 07:59 10/22/18 07:59 PT 12.3 SECONDS (9.7-12.2) H 10/23/18 11:36 INR 1.1 10/23/18 11:36 Attending/Attestation - Attestation I have personally seen and examined this patient.: Yes I have fully participated in the care of the patient.: Yes I have reviewed all pertinent clinical information, including history, physical exam and plan: Yes Notes (Text): 10/23/18 13:23 I have seen and examined patient with GI fellow. No acute events overnight, he is seen resting in bed comfortably. He reports ongoing mild LUQ abdominal pain but denies nausea, vomiting, fever/chills. Review of vitals from today shows tachycardia. HTN Abdominal pain CT imaging reviewed by me showing pancreatic cystic appearing lesion without associated biliary dilation. Also noted is R lobe hepatic lesion. - NPO - MRCP ordered by medical team, awaiting results - Obtain viral hepatitis panel, tumor markers - Obtain lipid profile - Continue with IVF hydration, supportive care - Will continue to monitor patient clinical course
[2018-10-23 11:56] LABS: INR 1.1; PROTHROMBIN TIME 12.3 SECONDS (9.7-12.2)
[2018-10-23 12:00] LABS: HDL CHOLESTEROL 45 mg/dL (30-70)
[2018-10-23] MEDS ORDERED: Pneumococcal 23-Valent Vaccine IM ONE (12:00)
[2018-10-23 12:12] LABS: LDL CHOLESTEROL 129 mg/dL (0-129)
--- NOTE | 2018-10-23 12:21 | CP.PCM.PN ---
Subjective - Date & Time of Evaluation Date of Evaluation: 10/23/18 Time of Evaluation: 12:21 - Subjective Subjective: Medicine Progress Note - Dr Janice Allen's Service Patient is a 43 year old male with past medical history of hypertension who presented to the emergency department for worsening abdominal pain. Patient states that on Tuesday he started experiencing diffuse abdominal pain. He took pepto bismol with some relief however the pain returned. He denies any associated symptoms. At this time, he states that the pain is located on the LUQ and his pain scale is 3-4/10. He went for MRCP this morning and is currently tolerating a clear liquid diet. He states that his last bowel movement was yesterday and it was soft. He did also report that his stool was black but attributes this to taking the pepto bismol. He offers no other complaints at t his time. He denies headaches, dizziness, cp, palpitations, sob, nausea/vomiting, urinary symptoms. Allergies : NKDA Medications : Losartan/HCTZ 25-100mg PO daily Medical History : Hypertension Surgical History: Denies Social History : Denies alcohol, tobacco, drug use; works at the [employer] Family History : Mother - from breast cancer ; Father - meningitis Objective - Vital Signs/Intake and Output Vital Signs (last 24 hours): Temp Pulse Resp BP Pulse Ox 98.1 F 98 H 20 145/87 97 10/23/18 07:12 10/23/18 07:12 10/23/18 07:12 10/23/18 07:12 10/23/18 07:12 Intake and Output: 10/23/18 10/23/18 06:59 18:59 Intake Total 1500 Balance 1500 - Medications Medications: Current Medications Enoxaparin Sodium (Lovenox) 40 mg SC DAILY [facility] Last Admin: 10/23/18 09:57 Dose: Not Given Sodium Chloride (Sodium Chloride 0.9%) 1,000 mls @ 75 mls/hr IV .[id number] [facility] Last Admin: 10/23/18 08:35 Dose: Not Given Morphine Sulfate (Morphine) 4 mg IVP Q6 PRN PRN Reason: Pain, severe (8-10) Last Admin: 10/21/18 21:02 Dose: 4 mg Nitroglycerin (Nitro-Bid 2% Oint) 1 ea TOP Q6H PRN PRN Reason: Pain, Mild (1-3) Pantoprazole Sodium (Protonix Inj) 40 mg IVP DAILY [facility] Last Admin: 10/23/18 09:57 Dose: Not Given - Labs Labs: 10/22/18 07:59 10/22/18 07:59 PT 12.3 SECONDS (9.7-12.2) H 10/23/18 11:36 INR 1.1 10/23/18 11:36 - Constitutional Appears: Non-toxic, No Acute Distress - Head Exam Head Exam: ATRAUMATIC, NORMAL INSPECTION, NORMOCEPHALIC - Eye Exam Eye Exam: EOMI, Normal appearance - ENT Exam ENT Exam: Mucous Membranes Moist - Neck Exam Neck Exam: Full ROM - Respiratory Exam Respiratory Exam: Clear to Ausculation Bilateral, NORMAL BREATHING PATTERN. absent: Rales, Rhonchi, Wheezes - Cardiovascular Exam Cardiovascular Exam: REGULAR RHYTHM, +S1, +S2 - GI/Abdominal Exam GI & Abdominal Exam: Distended (mildly), Soft, Normal Bowel Sounds. absent: Guarding, Tenderness - Extremities Exam Extremities Exam: Normal Inspection. absent: Calf Tenderness - Neurological Exam Neurological Exam: Alert, Awake, Oriented x3 - Psychiatric Exam Psychiatric exam: Normal Affect, Normal Mood - Skin Skin Exam: Dry, Normal Color, Warm Assessment and Plan - Assessment and Plan (Free Text) Assessment: Abdominal Pain -Stable, afebrile -Lipase mildly elevated at 533 -> 343 -Morphine 4mg Q6H prn pain -CT abdomen/pelvis showed Minimal peripancreatic fat thickening and stranding which may represent a minimal acute pancreatitis. Large rounded encapsulated low-attenuation lesion seen at the junction of the body and tail of the pancreas measuring 4.1 x 3.9 centimeters. This cystic lesion of the pancreas is of uncertain clinical etiology. Small hiatal hernia. Few mildly thickened loops of small bowel in the upper mid abdomen. Mildly thick-walled urinary bladder. Prominent liver with fatty infiltration. 1.9 centimeter low-attenuation lesion within the right hepatic lobe (see full report) -Abdominal US showed No visible common bile duct calculi. Common and intrahepatic biliary radicles are of normal caliber. Redemonstration of pancreatic cyst -Patient went for MRCP today, official report pending -Diet to be advanced as tolerated -GI on consult, Dr Wallace, help appreciated Hypertension -Monitoring Hypokalemia -Replete as needed GI/DVT ppx: -Protonix 40mg IVP daily -Lovenox 40mg SC daily Plan discussed with Dr Janice Castro DO PGY-2
[2018-10-23 12:31] LABS: HEPATITIS B SURFACE AG Negative (NEGATIVE)
[2018-10-23 12:37] LABS: HEPATITIS A IGM NEGATIVE (NEGATIVE); HEPATITIS B CORE AB NEGATIVE (NEGATIVE)
[2018-10-23 12:44] LABS: FERRITIN 50.6 ng/mL
[2018-10-23 12:45] LABS: ALPHA FETO PROTEIN 3.4 ng/mL (0.0-7.5)
[2018-10-23 12:49] LABS: HEPATITIS C ANTIBODY NEGATIVE (NEGATIVE)
[2018-10-23 13:28] LABS: ALB/GLOB RATIO 1.2 (1.0-2.1); ALBUMIN 4.1 g/dL (3.5-5.0); ALT/SGPT 20 U/L (21-72); AST/SGOT 23 U/L (17-59); BLOOD UREA NITROGEN 10 mg/dL (9-20); CALCIUM 9.6 mg/dl (8.6-10.4); GFR NON-AFRICAN AMERICAN > 60
--- NOTE | 2018-10-23 15:17 | MRI ---
MRI abdomen without/with IV contrast MRCP Indication: Pancreatic cyst, pancreatitis Technique: Multiplanar, multi sequence magnetic resonance images of the abdomen were obtained without and with the administration of intravenous gadolinium using a multi phase abdomen protocol. A total of 1027 images submitted for review Comparison: Abdominal ultrasound performed 10/22/18, CT abdomen and pelvis with contrast performed 10/21/18 Findings: 3.5 x 3.8 cm rounded T2 hyperintense T1 hypo intense nonenhancing lesion compatible with a cystic lesion identified at the body/tail junction of the pancreas. Tiny nodularity noted on T2 weighted imaging within this cystic lesion which do not demonstrate postcontrast enhancement. 16 mm right hepatic lobe T2 hyperintense T1 hypointense mass with mild peripheral enhancement noted on 3 min delayed sequence. Tiny filling defects within the gallbladder possibly gallstones or polyps. There is no intrahepatic biliary ductal dilatation. The common bile duct appears within normal limits in caliber and tapers distally. The pancreatic duct appears within normal limits of caliber. No filling defects are seen in the common bile duct or pancreatic duct. The spleen, pancreas, and adrenal glands appear unremarkable. The kidneys enhance symmetrically. No hydronephrosis or obstructing calculus identified. No enlarged abdominal lymph nodes are appreciated. Limited views of the inferior thorax appear unremarkable. Impression: 3.5 x 3.8 cm rounded cystic lesion at the pancreatic body/tail junction with tiny nodularity noted without postcontrast enhancement. Differential diagnosis includes cystic neoplasm versus sequela of prior pancreatitis. Correlate clinically. Indeterminate 16 mm mass in the right hepatic lobe with mild peripheral enhancement noted on delayed sequence. Malignant neoplasm is not excluded. Tiny filling defects within the gallbladder possibly gallstones or polyps.
[2018-10-23 17:14] VITALS: O2SAT 98
--- NOTE | 2018-10-23 20:04 | CP.PCM.PN ---
Subjective - Date & Time of Evaluation Date of Evaluation: 10/23/18 Time of Evaluation: 08:15 - Subjective Subjective: clinically same Objective - Vital Signs/Intake and Output Vital Signs (last 24 hours): Temp Pulse Resp BP Pulse Ox 98.3 F 85 20 129/78 98 10/23/18 16:00 10/23/18 16:00 10/23/18 16:00 10/23/18 16:00 10/23/18 16:00 Intake and Output: 10/23/18 10/24/18 18:59 06:59 Intake Total 900 Output Total 3 Balance 897 - Medications Medications: Current Medications Enoxaparin Sodium (Lovenox) 40 mg SC DAILY [facility] Last Admin: 10/23/18 09:57 Dose: Not Given Sodium Chloride (Sodium Chloride 0.9%) 1,000 mls @ 75 mls/hr IV .[id number] [facility] Last Admin: 10/23/18 08:35 Dose: Not Given Morphine Sulfate (Morphine) 4 mg IVP Q6 PRN PRN Reason: Pain, severe (8-10) Last Admin: 10/21/18 21:02 Dose: 4 mg Nitroglycerin (Nitro-Bid 2% Oint) 1 ea TOP Q6H PRN PRN Reason: Pain, Mild (1-3) Pantoprazole Sodium (Protonix Inj) 40 mg IVP DAILY [facility] Last Admin: 10/23/18 09:57 Dose: Not Given - Labs Labs: 10/22/18 07:59 10/23/18 12:55 PT 12.3 SECONDS (9.7-12.2) H 10/23/18 11:36 INR 1.1 10/23/18 11:36 - Constitutional Appears: Well - Head Exam Head Exam: ATRAUMATIC, NORMAL INSPECTION, NORMOCEPHALIC - Eye Exam Eye Exam: EOMI, Normal appearance, PERRL Pupil Exam: NORMAL ACCOMODATION, PERRL - ENT Exam ENT Exam: Mucous Membranes Moist, Normal Exam - Neck Exam Neck Exam: Full ROM, Normal Inspection. absent: Lymphadenopathy - Respiratory Exam Respiratory Exam: Decreased Breath Sounds - Cardiovascular Exam Cardiovascular Exam: REGULAR RHYTHM, +S1, +S2 - GI/Abdominal Exam GI & Abdominal Exam: Soft, Diminished Bowel Sounds - Rectal Exam Rectal Exam: Deferred
[2018-10-24] MEDS: Sodium Chloride 0.9% 1,000 ML IV SCH (00:02)
[2018-10-24 07:33] LABS: BASO # 0.1 K/uL (0.0-0.2); BASO % 0.9 % (0.0-2.0); EOS # 0.4 K/uL (0.0-0.7); EOS % 5.8 % (0.0-4.0); HEMOGLOBIN 14.8 g/dL (12.0-18.0); LYMPH # 2.2 K/uL (1.0-4.3); LYMPH % 33.6 % (20.0-40.0); MEAN CELL VOLUME 75.5 fL (80.0-94.0); MEAN CORPUSCULAR HEMOGLOBIN 24.6 pg (27.0-31.0); MEAN CORPUSCULAR HGB CONC 32.6 g/dL (33.0-37.0); MEAN PLATELET VOLUME 9.5 fL (7.2-11.7); MONO # 0.5 K/uL (0.0-0.8); MONO % 8.5 % (0.0-10.0); NEUT # 3.3 K/uL (1.8-7.0); NEUT % 51.2 % (50.0-75.0); NRBC % 0.1 % (0.0-2.0); RBC 6.01 Mil/uL (4.40-5.90); RED CELL DISTRIBUTION WIDTH 14.7 % (11.5-14.5); WHITE BLOOD COUNT 6.4 K/uL (4.8-10.8)
[2018-10-24 08:02] LABS: ALB/GLOB RATIO 1.1 (1.0-2.1); ALBUMIN 3.7 g/dL (3.5-5.0); ALT/SGPT 23 U/L (21-72); AST/SGOT 26 U/L (17-59); BLOOD UREA NITROGEN 9 mg/dL (9-20); CALCIUM 9.6 mg/dl (8.6-10.4); GFR NON-AFRICAN AMERICAN > 60
--- NOTE | 2018-10-24 08:59 | CP.PCM.PN ---
<Saskia Mckeon - Last Filed: 10/24/18 08:55> Subjective - Date & Time of Evaluation Date of Evaluation: 10/24/18 Time of Evaluation: 08:55 - Subjective Subjective: Gastroenterology Fellow/PGY6 Progress Note Patient notes minimal left upper abdomen pain, pain scale 1/10 from 4/10. Tolerating liquid diet. Notes normal bowel movement yesterday. A 12-point review of systems negative except for as above. Objective - Vital Signs/Intake and Output Vital Signs (last 24 hours): Temp Pulse Resp BP Pulse Ox 98.7 F 90 20 151/95 H 98 10/24/18 07:41 10/24/18 07:41 10/24/18 07:41 10/24/18 07:41 10/24/18 07:41 Intake and Output: 10/24/18 10/24/18 06:59 18:59 Intake Total 1200 600 Balance 1200 600 - Medications Medications: Current Medications Enoxaparin Sodium (Lovenox) 40 mg SC DAILY [facility] Last Admin: 10/23/18 09:57 Dose: Not Given Sodium Chloride (Sodium Chloride 0.9%) 1,000 mls @ 75 mls/hr IV .[id number] [facility] Last Admin: 10/24/18 00:02 Dose: 75 mls/hr Morphine Sulfate (Morphine) 4 mg IVP Q6 PRN PRN Reason: Pain, severe (8-10) Last Admin: 10/21/18 21:02 Dose: 4 mg Nitroglycerin (Nitro-Bid 2% Oint) 1 ea TOP Q6H PRN PRN Reason: Pain, Mild (1-3) Pantoprazole Sodium (Protonix Inj) 40 mg IVP DAILY [facility] Last Admin: 10/23/18 09:57 Dose: Not Given - Labs Labs: 10/24/18 07:14 10/24/18 07:14 PT 12.3 SECONDS (9.7-12.2) H 10/23/18 11:36 INR 1.1 10/23/18 11:36 - Constitutional Appears: Non-toxic, No Acute Distress - Head Exam Head Exam: ATRAUMATIC, NORMOCEPHALIC - Eye Exam Eye Exam: EOMI, PERRL. absent: Scleral icterus Pupil Exam: PERRL. absent: Miosis, Mydriatic - ENT Exam ENT Exam: Mucous Membranes Moist, Normal Oropharynx - Neck Exam Neck Exam: Full ROM, Normal Inspection - Respiratory Exam Respiratory Exam: Clear to Ausculation Bilateral. absent: Rales, Rhonchi, Wheezes - Cardiovascular Exam Cardiovascular Exam: RRR, +S1, +S2. absent: Gallop, Rubs - GI/Abdominal Exam GI & Abdominal Exam: Soft, Tenderness, Normal Bowel Sounds. absent: Distended, Firm, Guarding, Rigid, Organomegaly, Rebound Additional comments: mild LUQ discomfort to palpation - Extremities Exam Extremities Exam: Normal Inspection. absent: Pedal Edema - Neurological Exam Neurological Exam: Alert, Awake - Psychiatric Exam Psychiatric exam: Normal Affect, Normal Mood - Skin Skin Exam: Dry, Intact, Normal Color, Warm Assessment and Plan - Assessment and Plan (Free Text) Assessment: 43 year old male with PMH of Hypertension on Losartan/HCTZ presenting with abdominal pain. Active treatment of resolving acute mild pancreatitis with note of a pancreatic and liver lesions on CT A/P IV contrast. Ultrasound showed no gallstones, no biliary dilatation, and a 3x5mm gallbladder polyp. No prior EGD. Prior colonoscopy 02/2018 for evaluation of change in bowel habits and rectal bleeding showed a 4mm flat tubular adenoma, Grade II internal hemorrhoids, and excellent bowel prep with recommended surveillance in 5-10 years. Plan: -MRCP reviewed- 3.5x3.8cm pancreatic body/tail lesion possble tiny nodularity wi thin the lesion 16mm right hepatic mass with peripheral rim enhancement gallstones versus gallbladder polyps, normal CBD and PD -normal triglyceride, AFP, CA 19-9, Hepatitis panel, ferritin -pending autoimmune serologies -gentle IVFs -advance diet as tolerated to low fat -will discuss scheduling for hepatobilary surgery evaluation and CT liver protocol with primary team -will follow clinical course <Christiano Wallace - Last Filed: 10/24/18 11:02> Objective - Vital Signs/Intake and Output Vital Signs (last 24 hours): Temp Pulse Resp BP Pulse Ox 98.7 F 90 20 151/95 H 98 10/24/18 07:41 10/24/18 07:41 10/24/18 07:41 10/24/18 07:41 10/24/18 07:41 Intake and Output: 10/24/18 10/24/18 06:59 18:59 Intake Total 1200 600 Balance 1200 600 - Medications Medications: Current Medications Enoxaparin Sodium (Lovenox) 40 mg SC DAILY [facility] Last Admin: 10/24/18 10:16 Dose: 40 mg Sodium Chloride (Sodium Chloride 0.9%) 1,000 mls @ 75 mls/hr IV .[id number] [facility] Last Admin: 10/24/18 00:02 Dose: 75 mls/hr Morphine Sulfate (Morphine) 4 mg IVP Q6 PRN PRN Reason: Pain, severe (8-10) Last Admin: 10/21/18 21:02 Dose: 4 mg Nitroglycerin (Nitro-Bid 2% Oint) 1 ea TOP Q6H PRN PRN Reason: Pain, Mild (1-3) Pantoprazole Sodium (Protonix Inj) 40 mg IVP DAILY [facility] Last Admin: 10/24/18 10:16 Dose: 40 mg - Labs Labs: 10/24/18 07:14 10/24/18 07:14 PT 12.3 SECONDS (9.7-12.2) H 10/23/18 11:36 INR 1.1 10/23/18 11:36 Attending/Attestation - Attestation I have personally seen and examined this patient.: Yes I have fully participated in the care of the patient.: Yes I have reviewed all pertinent clinical information, including history, physical exam and plan: Yes Notes (Text): 10/24/18 10:57 I have seen and examined patient with GI fellow. No acute events overnight, he is seen sitting in chair and appears comfortable. He endorses only mild 1/10 intensity LUQ abdominal pain and denies nausea, vomiting, fever/chills. Tolerating PO liquids without difficulty. Review of vitals from today shows elevated BP. HTN Abdominal pain Acute pancreatitis - no obvious risk factors MR imaging reviewed by me showing well circumscribed 3-4 cm cystic lesion in pancreatic body without associated ductal dilation along with 1.6 cm R hepatic lobe lesion with peripheral nodularity, hypodense on T1 suggestive of hemangioma - Advance diet to low fat as tolerated - Continue with IVF hydration, supportive care - LFTs stable, continue to monitor and awaiting autoimmune panel testing - Patient would benefit from dedicated triple phase liver imaging on non- emergent basis - Given size of pancreatic lesion and clinical scenario with acute pancreatitis, will obtain hepatobiliary consultation for further input with Dr. Walsh - Will continue to monitor patient clinical course, discussed with Drs. Allen and Jason
[2018-10-24] MEDS: Enoxaparin 40 mg Syringe SC SCH (10:16)
--- NOTE | 2018-10-24 10:48 | CP.PCM.CON ---
<Sara Pope - Last Filed: 10/24/18 12:09> History of Present Illness - History of Present Illness History of Present Illness: Consult Note for Dr. Kaplan HPI: Patient is a 43 year old male with history of hypertension who initially presented for severe epigastric abdominal pain rated 10/10 on 10/21/18 without any associated nausea or vomiting. He was given Tums and Pepto Bismol and discharged home however he returned after he developed severe epigastric pain again later on while at work. He states he was then given Morphine after which he had 3 episodes of yellow emesis. He currently states he has no abdominal pain, denies nausea, vomiting. He states he is passing gas. He denies fevers, chills, headache, dizziness, chest pain, shortness of breath, urinary symptoms, leg pain or swelling, denies weight loss. PMH: HTN PSH: none Allergies: NKDA Home meds: Losartan/HCTZ Social hx: no history of smoking, alcohol or drug use. Family hx: Mother - breast cancer at age 63. 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 - RENAL Hx Chronic Kidney Disease: No - ENDOCRINE/METABOLIC Hx Endocrine Disorders: No - HEMATOLOGICAL/ONCOLOGICAL Hx Blood Disorders: No Hx Blood Transfusions: No - INTEGUMENTARY Hx Dermatological Problems: No - MUSCULOSKELETAL/RHEUMATOLOGICAL Hx Musculoskeletal Disorders: No - GASTROINTESTINAL Hx Gastrointestinal Disorders: Yes (ABDOMINAL PAIN) - GENITOURINARY/GYNECOLOGICAL Hx Genitourinary Disorders: No - PSYCHIATRIC Hx Substance Use: No - SURGICAL HISTORY Hx Surgeries: No - ANESTHESIA Hx Anesthesia: No Hx Anesthesia Reactions: No Hx Malignant Hyperthermia: No Meds Allergies/Adverse Reactions: Allergies Allergy/AdvReac Type Severity Reaction Status Date / Time No Known Allergies Allergy Verified 10/21/18 03:40 - Medications Medications: Current Medications Enoxaparin Sodium (Lovenox) 40 mg SC DAILY [facility] Last Admin: 10/24/18 10:16 Dose: 40 mg Sodium Chloride (Sodium Chloride 0.9%) 1,000 mls @ 75 mls/hr IV .[id number] [facility] Last Admin: 10/24/18 00:02 Dose: 75 mls/hr Morphine Sulfate (Morphine) 4 mg IVP Q6 PRN PRN Reason: Pain, severe (8-10) Last Admin: 10/21/18 21:02 Dose: 4 mg Nitroglycerin (Nitro-Bid 2% Oint) 1 ea TOP Q6H PRN PRN Reason: Pain, Mild (1-3) Pantoprazole Sodium (Protonix Inj) 40 mg IVP DAILY [facility] Last Admin: 10/24/18 10:16 Dose: 40 mg Physical Exam - Constitutional Appears: Well, Non-toxic, No Acute Distress - Head Exam Head Exam: ATRAUMATIC, NORMOCEPHALIC - Eye Exam Eye Exam: EOMI, PERRL. absent: Scleral icterus - ENT Exam ENT Exam: Mucous Membranes Moist - Respiratory Exam Respiratory Exam: Clear to Auscultation Bilateral, NORMAL BREATHING PATTERN - Cardiovascular Exam Cardiovascular Exam: REGULAR RHYTHM, +S1, +S2 - GI/Abdominal Exam GI & Abdominal Exam: Normal Bowel Sounds, Soft. absent: Distended, Firm, Guarding, Organomegaly, Tenderness - Extremities Exam Extremities exam: Positive for: pedal pulses present. Negative for: calf tenderness, pedal edema - Back Exam Back exam: absent: CVA tenderness (L), CVA tenderness (R) - Neurological Exam Neurological exam: Alert, Oriented x3 Results - Vital Signs Recent Vital Signs: Last Vital Signs Temp 98.7 F 10/24/18 07:41 Pulse 90 10/24/18 07:41 Resp 20 10/24/18 07:41 BP 151/95 H 10/24/18 07:41 Pulse Ox 98 10/24/18 07:41 - Labs Result Diagrams: 10/24/18 07:14 10/24/18 07:14 Labs: Laboratory Results - last 24 hr 10/23/18 10/23/18 10/23/18 11:16 11:36 11:36 WBC RBC Hgb Hct MCV MCH MCHC RDW Plt Count MPV Neut % (Auto) Lymph % (Auto) [place] % (Auto) Eos % (Auto) Baso % (Auto) Neut # (Auto) Lymph # (Auto) [place] # (Auto) Eos # (Auto) Baso # (Auto) PT INR Sodium Potassium Chloride Carbon Dioxide Anion Gap BUN Creatinine Est GFR ( Amer) Est GFR (Non-Af Amer) POC Glucose (mg/dL) 93 Random Glucose Calcium Iron 49 TIBC 419 % Saturation 12 L Ferritin 50.6 Total Bilirubin AST ALT Alkaline Phosphatase Total Protein Albumin Globulin Albumin/Globulin Ratio Triglycerides 114 Cholesterol 186 LDL Cholesterol Direct 129 HDL Cholesterol 45 Alpha Fetoprotein 3.4 CA 19-9 Antigen < 1.4 Hepatitis A IgM Ab Hep Bs Antigen Hep B Core IgM Ab Hepatitis C Antibody 10/23/18 10/23/18 10/23/18 11:36 11:36 12:55 WBC RBC Hgb Hct MCV MCH MCHC RDW Plt Count MPV Neut % (Auto) Lymph % (Auto) [place] % (Auto) Eos % (Auto) Baso % (Auto) Neut # (Auto) Lymph # (Auto) [place] # (Auto) Eos # (Auto) Baso # (Auto) PT 12.3 H INR 1.1 Sodium 137 Potassium 3.6 Chloride 103 Carbon Dioxide 26 Anion Gap 12 BUN 10 Creatinine 1.0 Est GFR ( Amer) > 60 Est GFR (Non-Af Amer) > 60 POC Glucose (mg/dL) Random Glucose 87 Calcium 9.6 Iron TIBC % Saturation Ferritin Total Bilirubin 0.9 AST 23 ALT 20 L D Alkaline Phosphatase 80 Total Protein 7.4 Albumin 4.1 Globulin 3.3 Albumin/Globulin Ratio 1.2 Triglycerides Cholesterol LDL Cholesterol Direct HDL Cholesterol Alpha Fetoprotein CA 19-9 Antigen Hepatitis A IgM Ab Negative Hep Bs Antigen Negative Hep B Core IgM Ab Negative Hepatitis C Antibody Negative 10/24/18 10/24/18 07:14 07:14 WBC 6.4 RBC 6.01 H Hgb 14.8 Hct 45.4 MCV 75.5 L MCH 24.6 L MCHC 32.6 L RDW 14.7 H Plt Count 236 MPV 9.5 Neut % (Auto) 51.2 Lymph % (Auto) 33.6 [place] % (Auto) 8.5 Eos % (Auto) 5.8 H Baso % (Auto) 0.9 Neut # (Auto) 3.3 Lymph # (Auto) 2.2 [place] # (Auto) 0.5 Eos # (Auto) 0.4 Baso # (Auto) 0.1 PT INR Sodium 137 Potassium 3.9 Chloride 105 Carbon Dioxide 25 Anion Gap 11 BUN 9 Creatinine 1.0 Est GFR ( Amer) > 60 Est GFR (Non-Af Amer) > 60 POC Glucose (mg/dL) Random Glucose 94 Calcium 9.6 Iron TIBC % Saturation Ferritin Total Bilirubin 0.8 AST 26 ALT 23 Alkaline Phosphatase 75 Total Protein 7.2 Albumin 3.7 Globulin 3.5 Albumin/Globulin Ratio 1.1 Triglycerides Cholesterol LDL Cholesterol Direct HDL Cholesterol Alpha Fetoprotein CA 19-9 Antigen Hepatitis A IgM Ab Hep Bs Antigen Hep B Core IgM Ab Hepatitis C Antibody Assessment & Plan - Assessment and Plan (Free Text) Assessment: 43 year old male with history of hypertension on Losartan/HCTZ who presented for epigastric abdominal pain. Initial CT revealed pancreatic lesion. Ultrasound revealed no gallstones, no CBD dilatation, gallbladder polyp. Plan: MRCP: 3.5cm x 3.8cm rounded cystic lesion at pancreatic body/tail region. Indeterminate 16mm mass in right hepatic lobe with mild peripheral enhancement, gallstone vs gallbladder polyps, Abdomen US: no visible CBD calculi. Gallbladder has 3 x5mm polyp. Hepatitis panel negative AFP, ferritin, triglycerides, CA 19-9 wnl liquid diet Plan for EUS Sara Pope, PGY1 <Manish Kaplan - Last Filed: 10/24/18 12:46> Meds - Medications Medications: Current Medications Enoxaparin Sodium (Lovenox) 40 mg SC DAILY [facility] Last Admin: 10/24/18 10:16 Dose: 40 mg Sodium Chloride (Sodium Chloride 0.9%) 1,000 mls @ 75 mls/hr IV .[id number] [facility] Last Admin: 10/24/18 00:02 Dose: 75 mls/hr Morphine Sulfate (Morphine) 4 mg IVP Q6 PRN PRN Reason: Pain, severe (8-10) Last Admin: 10/21/18 21:02 Dose: 4 mg Nitroglycerin (Nitro-Bid 2% Oint) 1 ea TOP Q6H PRN PRN Reason: Pain, Mild (1-3) Pantoprazole Sodium (Protonix Inj) 40 mg IVP DAILY [facility] Last Admin: 10/24/18 10:16 Dose: 40 mg Results - Vital Signs Recent Vital Signs: Last Vital Signs Temp 98.7 F 10/24/18 07:41 Pulse 90 10/24/18 07:41 Resp 20 10/24/18 07:41 BP 151/95 H 10/24/18 07:41 Pulse Ox 98 10/24/18 07:41 - Labs Result Diagrams: 10/24/18 07:14 10/24/18 07:14 Labs: Laboratory Results - last 24 hr 10/23/18 10/23/18 10/23/18 11:36 11:36 11:36 WBC RBC Hgb Hct MCV MCH MCHC RDW Plt Count MPV Neut % (Auto) Lymph % (Auto) [place] % (Auto) Eos % (Auto) Baso % (Auto) Neut # (Auto) Lymph # (Auto) [place] # (Auto) Eos # (Auto) Baso # (Auto) Sodium Potassium Chloride Carbon Dioxide Anion Gap BUN Creatinine Est GFR ( Amer) Est GFR (Non-Af Amer) Random Glucose Calcium Ferritin 50.6 Total Bilirubin AST ALT Alkaline Phosphatase Total Protein Albumin Globulin Albumin/Globulin Ratio Alpha Fetoprotein 3.4 CA 19-9 Antigen < 1.4 Hepatitis A IgM Ab Negative Hep Bs Antigen Negative Hep B Core IgM Ab Negative Hepatitis C Antibody Negative 10/23/18 10/24/18 10/24/18 12:55 07:14 07:14 WBC 6.4 RBC 6.01 H Hgb 14.8 Hct 45.4 MCV 75.5 L MCH 24.6 L MCHC 32.6 L RDW 14.7 H Plt Count 236 MPV 9.5 Neut % (Auto) 51.2 Lymph % (Auto) 33.6 [place] % (Auto) 8.5 Eos % (Auto) 5.8 H Baso % (Auto) 0.9 Neut # (Auto) 3.3 Lymph # (Auto) 2.2 [place] # (Auto) 0.5 Eos # (Auto) 0.4 Baso # (Auto) 0.1 Sodium 137 137 Potassium 3.6 3.9 Chloride 103 105 Carbon Dioxide 26 25 Anion Gap 12 11 BUN 10 9 Creatinine 1.0 1.0 Est GFR ( Amer) > 60 > 60 Est GFR (Non-Af Amer) > 60 > 60 Random Glucose 87 94 Calcium 9.6 9.6 Ferritin Total Bilirubin 0.9 0.8 AST 23 26 ALT 20 L D 23 Alkaline Phosphatase 80 75 Total Protein 7.4 7.2 Albumin 4.1 3.7 Globulin 3.3 3.5 Albumin/Globulin Ratio 1.2 1.1 Alpha Fetoprotein CA 19-9 Antigen Hepatitis A IgM Ab Hep Bs Antigen Hep B Core IgM Ab Hepatitis C Antibody Assessment & Plan (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 he denies weight loss, change in appetite or bowel habits. CT scan shows what appears to be a cystic pancreatic mass, with out septae, however there is reported nodularity mention to exist in the wall of the cyst. Serum CA19-9 < 2. Consider input from interventional gastroenterology, h owever given size, surgery may ultimately be indicated. He would be eligible for laparoscopic subtotal pancreatectomy. Will check Hemoglobin A1C pre-op Status: Acute (2) Pancreatic lesion Status: Acute - Assessment and Plan (Free Text) Plan: Consider input from interventional gastroenterology, however given size, surgery may ultimately be indicated. - Date & Time Date: 10/24/18 Time: 12:40
--- NOTE | 2018-10-24 14:15 | CP.PCM.PN ---
<Saskia Mckeon - Last Filed: 10/24/18 14:11> Subjective - Date & Time of Evaluation Date of Evaluation: 10/24/18 Time of Evaluation: 14:11 - Subjective Subjective: Gastroenterology Fellow/PGY6 Progress Note for Dr. Barahona Patient evaluated this afternoon with Dr. Barahona and noted to have minimal left upper abdomen pain. Tolerated low fat diet. Admits to bowel movement yesterday. A 12-point review of systems negative except for as above. Objective - Vital Signs/Intake and Output Vital Signs (last 24 hours): Temp Pulse Resp BP Pulse Ox 98.7 F 90 20 151/95 H 98 10/24/18 07:41 10/24/18 07:41 10/24/18 07:41 10/24/18 07:41 10/24/18 07:41 Intake and Output: 10/24/18 10/24/18 06:59 18:59 Intake Total 1200 600 Balance 1200 600 - Medications Medications: Current Medications Enoxaparin Sodium (Lovenox) 40 mg SC DAILY [facility] Last Admin: 10/24/18 10:16 Dose: 40 mg Sodium Chloride (Sodium Chloride 0.9%) 1,000 mls @ 75 mls/hr IV .[id number] [facility] Last Admin: 10/24/18 00:02 Dose: 75 mls/hr Morphine Sulfate (Morphine) 4 mg IVP Q6 PRN PRN Reason: Pain, severe (8-10) Last Admin: 10/21/18 21:02 Dose: 4 mg Nitroglycerin (Nitro-Bid 2% Oint) 1 ea TOP Q6H PRN PRN Reason: Pain, Mild (1-3) Pantoprazole Sodium (Protonix Inj) 40 mg IVP DAILY [facility] Last Admin: 10/24/18 10:16 Dose: 40 mg - Labs Labs: 10/24/18 07:14 10/24/18 07:14 PT 12.3 SECONDS (9.7-12.2) H 10/23/18 11:36 INR 1.1 10/23/18 11:36 - Constitutional Appears: Non-toxic, No Acute Distress - Head Exam Head Exam: ATRAUMATIC, NORMOCEPHALIC - Eye Exam Eye Exam: EOMI, PERRL. absent: Scleral icterus Pupil Exam: PERRL. absent: Miosis, Mydriatic - ENT Exam ENT Exam: Mucous Membranes Moist, Normal Oropharynx - Neck Exam Neck Exam: Full ROM, Normal Inspection - Respiratory Exam Respiratory Exam: Clear to Ausculation Bilateral. absent: Rales, Rhonchi, Wheezes - Cardiovascular Exam Cardiovascular Exam: RRR, +S1, +S2. absent: Gallop, Rubs - GI/Abdominal Exam GI & Abdominal Exam: Soft, Normal Bowel Sounds. absent: Distended, Firm, Guarding, Rigid, Tenderness, Organomegaly, Rebound - Extremities Exam Extremities Exam: Normal Inspection. absent: Pedal Edema - Neurological Exam Neurological Exam: Alert, Awake - Psychiatric Exam Psychiatric exam: Normal Affect, Normal Mood - Skin Skin Exam: Dry, Intact, Normal Color, Warm Assessment and Plan - Assessment and Plan (Free Text) Assessment: 43 year old male with PMH of Hypertension on Losartan/HCTZ presenting with abdominal pain. Active treatment of resolving acute mild pancreatitis with note of a pancreatic and liver lesions on CT A/P IV contrast. Ultrasound showed no gallstones, no biliary dilatation, and a 3x5mm gallbladder polyp. No prior EGD. Prior colonoscopy 02/2018 for evaluation of change in bowel habits and rectal bleeding showed a 4mm flat tubular adenoma, Grade II internal hemorrhoids, and excellent bowel prep with recommended surveillance in 5-10 years. Plan: -MRCP reviewed- 3.5x3.8cm pancreatic body/tail lesion possble tiny nodularity within the lesion 16mm right hepatic mass with peripheral rim enhancement gallstones versus gallbladder polyps, normal CBD and PD -counselling provided at bedside on pancreatic lesion workup -plan for outpatient EUS with FNA for further evaluation and fluid analysis for characterization -patient provided with Dr.. Barahona's office information -will follow clinical course <Divina Barahona - Last Filed: 10/24/18 14:29> Objective - Vital Signs/Intake and Output Vital Signs (last 24 hours): Temp Pulse Resp BP Pulse Ox 98.7 F 90 20 151/95 H 98 10/24/18 07:41 10/24/18 07:41 10/24/18 07:41 10/24/18 07:41 10/24/18 07:41 Intake and Output: 10/24/18 10/24/18 06:59 18:59 Intake Total 1200 600 Balance 1200 600 - Medications Medications: Current Medications Enoxaparin Sodium (Lovenox) 40 mg SC DAILY [facility] Last Admin: 10/24/18 10:16 Dose: 40 mg Sodium Chloride (Sodium Chloride 0.9%) 1,000 mls @ 75 mls/hr IV .[id number] [facility] Last Admin: 10/24/18 00:02 Dose: 75 mls/hr Morphine Sulfate (Morphine) 4 mg IVP Q6 PRN PRN Reason: Pain, severe (8-10) Last Admin: 10/21/18 21:02 Dose: 4 mg Nitroglycerin (Nitro-Bid 2% Oint) 1 ea TOP Q6H PRN PRN Reason: Pain, Mild (1-3) Pantoprazole Sodium (Protonix Inj) 40 mg IVP DAILY [facility] Last Admin: 10/24/18 10:16 Dose: 40 mg - Labs Labs: 10/24/18 07:14 10/24/18 07:14 PT 12.3 SECONDS (9.7-12.2) H 10/23/18 11:36 INR 1.1 10/23/18 11:36 Attending/Attestation - Attestation I have personally seen and examined this patient.: Yes I have fully participated in the care of the patient.: Yes I have reviewed all pertinent clinical information, including history, physical exam and plan: Yes Notes (Text): 10/24/18 14:24 I have seen and examined patient with GI fellow. Pt appears comfortable. Tolerated PO without difficulty. HTN Epigastric abdominal pain Mild acute pancreatitis Pancreatic cystic neoplasm MRCP reviewed. 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
--- NOTE | 2018-10-24 15:15 | CP.PCM.PN ---
Subjective - Date & Time of Evaluation Date of Evaluation: 10/24/18 Time of Evaluation: 15:14 - Subjective Subjective: Medicine Progress Note - Dr Janice Allen's service Patient seen and examined at bedside. Per nursing no acute events overnight. Patient is doing well, abdominal pain is minimal. Offers no complaints at this time. Objective - Vital Signs/Intake and Output Vital Signs (last 24 hours): Temp Pulse Resp BP Pulse Ox 98.7 F 90 20 151/95 H 98 10/24/18 07:41 10/24/18 07:41 10/24/18 07:41 10/24/18 07:41 10/24/18 07:41 Intake and Output: 10/24/18 10/24/18 06:59 18:59 Intake Total 1200 600 Balance 1200 600 - Medications Medications: Current Medications Enoxaparin Sodium (Lovenox) 40 mg SC DAILY [facility] Last Admin: 10/24/18 10:16 Dose: 40 mg Sodium Chloride (Sodium Chloride 0.9%) 1,000 mls @ 75 mls/hr IV .[id number] [facility] Last Admin: 10/24/18 00:02 Dose: 75 mls/hr Losartan Potassium (Cozaar) 100 mg PO ONCE ONE Stop: 10/24/18 15:12 Morphine Sulfate (Morphine) 4 mg IVP Q6 PRN PRN Reason: Pain, severe (8-10) Last Admin: 10/21/18 21:02 Dose: 4 mg Nitroglycerin (Nitro-Bid 2% Oint) 1 ea TOP Q6H PRN PRN Reason: Pain, Mild (1-3) Pantoprazole Sodium (Protonix Inj) 40 mg IVP DAILY [facility] Last Admin: 10/24/18 10:16 Dose: 40 mg - Labs Labs: 10/24/18 07:14 10/24/18 07:14 PT 12.3 SECONDS (9.7-12.2) H 10/23/18 11:36 INR 1.1 10/23/18 11:36 - Constitutional Appears: Non-toxic, No Acute Distress - Head Exam Head Exam: ATRAUMATIC, NORMAL INSPECTION - Eye Exam Eye Exam: EOMI, Normal appearance - ENT Exam ENT Exam: Mucous Membranes Moist - Neck Exam Neck Exam: Full ROM - Respiratory Exam Respiratory Exam: Clear to Ausculation Bilateral, NORMAL BREATHING PATTERN. absent: Rales, Rhonchi, Wheezes - Cardiovascular Exam Cardiovascular Exam: REGULAR RHYTHM, +S1, +S2 - GI/Abdominal Exam GI & Abdominal Exam: Soft, Normal Bowel Sounds. absent: Guarding, Rigid, Tenderness - Extremities Exam Extremities Exam: Normal Inspection. absent: Calf Tenderness - Neurological Exam Neurological Exam: Alert, Awake, Oriented x3 - Psychiatric Exam Psychiatric exam: Normal Affect, Normal Mood - Skin Skin Exam: Dry, Normal Color, Warm Assessment and Plan - Assessment and Plan (Free Text) Assessment: Abdominal Pain (improving) -Stable, afebrile -Lipase mildly elevated at 533 -> 343 -CT abdomen/pelvis showed Minimal peripancreatic fat thickening and stranding which may represent a minimal acute pancreatitis. Large rounded encapsulated low-attenuation lesion seen at the junction of the body and tail of the pancreas measuring 4.1 x 3.9 centimeters. This cystic lesion of the pancreas is of uncertain clinical etiology. Small hiatal hernia. Few mildly thickened loops of small bowel in the upper mid abdomen. Mildly thick-walled urinary bladder. Prominent liver with fatty infiltration. 1.9 centimeter low-attenuation lesion within the right hepatic lobe (see full report) -Abdominal US showed No visible common bile duct calculi. Common and intrahepatic biliary radicles are of normal caliber. Redemonstration of pancreatic cyst -GI on consult, Dr Wallace, help appreciated Pancreatic cystic lesion -MRCP: 3.5 x 3.8 cm rounded cystic lesion at the pancreatic body/tail junction with tiny nodularity noted without postcontrast enhancement. Differential diagnosis includes cystic neoplasm versus sequela of prior pancreatitis. Correlate clinically. Indeterminate 16 mm mass in the right hepatic lobe with mild peripheral enhancement noted on delayed sequence. Malignant neoplasm is not excluded. Tiny filling defects within the gallbladder possibly gallstones or polyps -Dr Phan consulted, help appreciated -Patient to follow up with GI for outpatient EUS Hypertension -Restart home medication Hypokalemia -Replete as needed GI/DVT ppx: -Protonix 40mg IVP daily -Lovenox 40mg SC daily DISPO: Patient is medically stable for discharge home. Patient to follow up with GI for outpatient EUS. Plan discussed with Dr Janice Castro DO PGY-2
[2018-10-24 15:49] VITALS: BP 149/93; PULSE 97; TEMP 99.1
[2018-10-24] MEDS ORDERED: Pneumococcal 23-Valent Vaccine IM ONE (16:30)
--- NOTE | 2018-10-25 07:54 | CON ---
DATE: 10/24/2018 REASON FOR CONSULTATION: Pancreatic mass. HISTORY OF PRESENT ILLNESS: This is a 43-year-old male with history of hypertension, otherwise healthy, who presented with acute abdominal pain, was evaluated to have acute pancreatitis but did not have the symptoms to match the same, underwent a CAT scan which showed about a 4 cm mass in the pancreatic area, then underwent an MRCP which again confirmed finding of the same. Also, the MRCP showed a 3.8 cm pancreatic body lesion and a nodularity within the lesion, also a 16 mm right hepatic mass with peripheral enhancement, and so Oncology consult has been recommended. PAST MEDICAL HISTORY: Significant for hypertension. PAST SURGICAL HISTORY: Colonoscopy with Dr. Stiles with tubular adenoma. FAMILY HISTORY: Denies any cancers. SOCIAL HISTORY: Nonsmoker and nondrinker. REVIEW OF SYSTEMS: As per HPI. ALLERGIES: NO KNOWN DRUG ALLERGIES. MEDICATIONS: On Lovenox, morphine, nitroglycerine, and Protonix. PHYSICAL EXAMINATION: VITAL SIGNS: Temperature is 98.2, blood pressure is 110/70, pulse is 76. HEENT: PERRLA. No scleral icterus is seen. NECK: Supple. CHEST: Bilateral air entry is fair. CARDIOVASCULAR SYSTEM: S1 and S2. Regular rate and rhythm. LABORATORY DATA: Labs show a white count of 11.5, hemoglobin of 15, platelets of 259. BUN 11. ASSESSMENT AND PLAN: A 43-year-old male with pancreatic cyst/mass with a liver mass. The patient is awaiting a CAT scan with liver protocol to see if this is a hemangioma, also awaiting Dr. Arita, hepatobiliary surgeon, for further input. Case was discussed with Dr. Wallace. Further recommendations once above done. Low risk of malignancy. Case was discussed with the patient. We will discuss with Dr. Allen. Ermelinda Gomez MD
== END 2018-10-24 17:09 | disposition home or self-care (01) ==
LOC: C.ER 15:34 → C.9E 17:20 → C.5S 19:31 → C.3T 10-24 10:55
PROVIDERS: ADMIT Internal Medicine Nephrology; ATTEND Internal Medicine Nephrology
DX: K85.90 Acute pancreatitis without necrosis or infection, unspecified (principal); K86.2 Cyst of pancreas; Z80.3 Family history of malignant neoplasm of breast; Z82.49 Family history of ischemic heart disease and other diseases of the circulatory system; Z83.3 Family history of diabetes mellitus; D49.0 Neoplasm of unspecified behavior of digestive system; E87.6 Hypokalemia; I10 Essential (primary) hypertension; K44.9 Diaphragmatic hernia without obstruction or gangrene; K64.8 Other hemorrhoids; K76.0 Fatty (change of) liver, not elsewhere classified; Z23 Encounter for immunization
CPT/HCPCS: 36415; 74183; 76700; 80053; 80061; 80074; 81001; 82105; 82728; 82787; 82948; 83540; 83550; 83690; 85025; 85610; 86038; 86255; 86301; 86334; 86376; 90471; 90732; 96361; 96372; 96374; 96375; 96376; 99284; A9579; C9113; G0378; J1650; J2270; J7030